=== PATIENT | female | born 1965 | race Caucasian/White ===

== ENCOUNTER → 2019-03-20 | Outpatient (CLI) | payer BC ==
[~2019-03-20] MED LIST: Iopamidol 612 MG/ML 150 ML Bottle IV SCH; Sodium Chloride 0.9% 10 ML Syringe FLUSH ONE; Sodium Chloride 0.9% 80 ML IV ONE
--- NOTE | 2019-03-20 10:38 | CRLCT ---
INDICATION: 54 year-old female. Abdominal pain. Previous cholecystectomy, hernia repair, as well as a Margarita-en-Y gastric bypass. TECHNIQUE: Contrast-enhanced abdominal pelvic CT. 124 cc nonionic Isovue-300 administered. COMPARISON: None. FINDINGS: Postsurgical change from gastric bypass and cholecystectomy. Small esophageal hiatal hernia. There is a small upper anterior ventral abdominal wall hernia image 46 series 2. The overlying anterior abdominal wall muscle does appear to be intact although part of the transverse colon and a knuckle of small bowel to protrude anteriorly. There is no evidence for bowel obstruction or ileus. There is trace free pelvic ascites which is nonspecific. Normal appendix. No diverticular disease. The liver is negative for masses or biliary ductal dilatation. Tiny cyst or hemangioma posterior right hepatic lobe of no clinical significance image 33 series 2. Normal-appearing spleen, pancreas, and right adrenal gland. The left adrenal gland is mildly prominent but low-attenuation likely related to hyperplasia. Normal kidneys without stones, masses, or obstruction. Vascular calcification within a normal caliber abdominal aorta and iliac arteries. Normal inferior vena cava. The uterus, urinary bladder, and both ovaries are unremarkable. Clear included lung bases. The included skeleton is unremarkable. IMPRESSION: 1. No acute abdominopelvic process identified. 2. Small upper abdominal ventral hernia with intact overlying abdominal wall muscle. Small esophageal hiatal hernia. 3. Postsurgical change in the upper abdomen as described. Please note that all CT scans at this facility use dose modulation, iterative reconstruction, and/or weight-based dosing when appropriate to reduce radiation dose to as low as reasonably achievable. Dictated by Piter Velázquez MD @ Mar 20 2019 10:30AM Signed by Dr. Piter Velázquez @ Mar 20 2019 10:36AM
== END ==
LOC: JP.CT 09:08
PROVIDERS: ATTEND Physician Assistant Medical
DX: K91.2 Postsurgical malabsorption, not elsewhere classified (principal); K43.9 Ventral hernia without obstruction or gangrene; K44.9 Diaphragmatic hernia without obstruction or gangrene; Z98.84 Bariatric surgery status
CPT/HCPCS: 74177

== ENCOUNTER 2022-01-25 06:52 | Inpatient (IN) | payer OTHER ==
[~2022-01-25 06:52] MED LIST changes: +Bupivacaine 0.5% 50 ML MDV ONE; +Bupivacaine 0.5%/EPINEPHrine 1:200,000 50 ML MDV ONE; -Iopamidol 612 MG/ML 150 ML Bottle IV SCH; +Lidocaine 1% with EPINEPHrine 1:100,000 50 ML MDV ONE; +Meropenem 500 MG SDV ONE; -Sodium Chloride 0.9% 10 ML Syringe FLUSH ONE; -Sodium Chloride 0.9% 80 ML IV ONE
[2022-01-25] MEDS ORDERED: Dexamethasone 4 MG/ML SDV ONE (07:10)
[2022-01-25] MEDS ORDERED: Rocuronium 50 MG/5 ML Vial ONE (07:10)
[2022-01-25] MEDS ORDERED: Ondansetron 4 MG/2 ML SDV ONE (07:10)
[2022-01-25] MEDS ORDERED: Succinylcholine 200 MG/10 ML MDV ONE (07:10)
[2022-01-25] MEDS ORDERED: Neostigmine Methylsulfate 1 MG/ML 5 ML Syringe ONE (07:10)
[2022-01-25] MEDS ORDERED: Glycopyrrolate 0.2 MG/ML 5 ML MDV ONE (07:10)
[2022-01-25] MEDS ORDERED: Propofol 200 MG/20 ML SDV ONE (07:10)
[2022-01-25] MEDS ORDERED: fentaNYL 250 MCG/5 ML SDV ONE ×2 (07:11→09:00)
[2022-01-25] MEDS ORDERED: Dextrose 5%-Lactated Ringers 1,000 ML IV SCH (07:30)
[2022-01-25] MEDS ORDERED: Celecoxib 200 MG Cap PO ONE (07:30)
[2022-01-25] MEDS ORDERED: Acetaminophen 500 MG Tab PO ONE (07:30)
[2022-01-25] MEDS ORDERED: HYDROmorphone/Normal Saline 6 MG/30 ML PCA Vial IV PRN (07:38)
[2022-01-25] MEDS ORDERED: cefOXitin 2 GM in Sodium Chloride 0.9% 50 ML IV ONE (08:30)
[2022-01-25] MEDS ORDERED: Naloxone 0.4 MG/ML SDV IV PRN (08:30)
[2022-01-25] MEDS ORDERED: Ketamine 500 MG/5 ML MDV IV SCH (08:45)
[2022-01-25] MEDS ORDERED: Ketamine 16 MG in Sodium Chloride 0.9% 19.84 ML IV SCH (08:45)
[2022-01-25] MEDS ORDERED: Lactated Ringers 1,000 ML ONE (10:17)
[2022-01-25] MEDS ORDERED: Ketorolac 30 MG/ML SDV ONE (10:31)
[2022-01-25] MEDS ORDERED: Cyclobenzaprine 10 MG Tab PO PRN (11:56)
[2022-01-25] MEDS ORDERED: Pantoprazole 40 MG Vial IVPUSH SCH (12:00)
[2022-01-25] MEDS ORDERED: Ondansetron 4 MG/2 ML SDV IVPUSH PRN (12:00)
[2022-01-25] MEDS ORDERED: Metoclopramide 10 MG/2 ML SDV IVPUSH PRN (12:00)
[2022-01-25] MEDS ORDERED: Labetalol 20 MG/4 ML Syringe IVPUSH PRN (12:00)
[2022-01-25] MEDS ORDERED: diphenhydrAMINE 50 MG/ML SDV IVPUSH PRN (12:00)
[2022-01-25] MEDS ORDERED: Acetaminophen 500 MG Tab PO PRN (12:00)
[2022-01-25] MEDS ORDERED: hydrOXYzine HCL 100 MG/2 ML SDV IM PRN (12:00)
[2022-01-25] MEDS: Dextrose 5%-Lactated Ringers 1,000 ML IV SCH (12:03)
[2022-01-25] MEDS ORDERED: Scopolamine 1.5 MG Transdermal Patch TOP PRN (12:51)
[2022-01-25] MEDS: Acetaminophen 500 MG Tab PO SCH ×2 (14:55→22:42)
[2022-01-25] MEDS ORDERED: MVI, Adult with Vitamin K 10 ML, Thiamine 200 MG, Zinc/Copper/Manganese/Selenium 1 ML i... IV SCH ×4 (16:00)
[2022-01-25] MEDS: ceFAZolin 2 GM in Premix Bag 1 BAG IV SCH (16:17)
[2022-01-25] MEDS: Heparin Sodium 5,000 Units/ML Vial SUBCUT SCH (20:56)
[2022-01-26] MEDS: ceFAZolin 2 GM in Premix Bag 1 BAG IV SCH ×2 (00:27→07:56)
[2022-01-26] MEDS: Dextrose 5%-Lactated Ringers 1,000 ML IV SCH ×2 (01:59→07:54)
[2022-01-26] MEDS: Acetaminophen 500 MG Tab PO SCH ×2 (06:00→13:45)
[2022-01-26] MEDS ORDERED: Iopamidol 612 MG/ML 50 ML SDV PO ONE (06:59)
[2022-01-26] MEDS: Heparin Sodium 5,000 Units/ML Vial SUBCUT SCH (07:56)
[2022-01-26] MEDS ORDERED: SCOPOLAMINE PATCH CHECK TOP SCH (09:00)
[2022-01-26] MEDS ORDERED: Celecoxib 200 MG Cap PO SCH (09:00)
[2022-01-26] MEDS ORDERED: Dextrose 5%-Lactated Ringers 1,000 ML IV SCH (11:15)
[2022-01-26] MEDS ORDERED: oxyCODONE 5 MG Tab PO PRN (11:20)
[2022-01-26] MEDS ORDERED: Benzocaine/Cetylpyridinium/Menthol Lozenge MUCMEM PRN (11:21)
[2022-01-26] MEDS ORDERED: Pantoprazole 40 MG Delayed-Release Granules 1 Packet PO SCH (16:30)
[2022-01-27] MEDS ORDERED: Cyanocobalamin (Vitamin B12) 1,000 MCG/ML SDV IM ONE (09:00)
== END 2022-01-26 17:30 | disposition home or self-care (01) | DRG 329 ==
LOC: JP.SDS 06:52 → JP.SDSSCHI 06:52 → EDSTATUS 09:15 → JP.MS 11:00
PROVIDERS: ADMIT Surgery; ATTEND Surgery
PROC: 0WUF0JZ Supplement Abdominal Wall with Synthetic Substitute, Open Approach (ICD-10-PCS; principal; 2022-01-25)
PROC: 0DS80ZZ Reposition Small Intestine, Open Approach (ICD-10-PCS; 2022-01-25)
PROC: 0DBW0ZZ Excision of Peritoneum, Open Approach (ICD-10-PCS; 2022-01-25)
PROC: 0DQV0ZZ Repair Mesentery, Open Approach (ICD-10-PCS; 2022-01-25)
PROC: 0WCG0ZZ Extirpation of Matter from Peritoneal Cavity, Open Approach (ICD-10-PCS; 2022-01-25)
PROC: 3E0M05Z Introduction of Adhesion Barrier into Peritoneal Cavity, Open Approach (ICD-10-PCS; 2022-01-25)
DX: K43.0 Incisional hernia with obstruction, without gangrene (principal); K56.2 Volvulus; K91.2 Postsurgical malabsorption, not elsewhere classified; E66.9 Obesity, unspecified; M79.7 Fibromyalgia; K43.9 Ventral hernia without obstruction or gangrene; E53.8 Deficiency of other specified B group vitamins; Z87.891 Personal history of nicotine dependence; Z68.31 Body mass index [BMI] 31.0-31.9, adult
CPT/HCPCS: 74240; 74240-26; 88300; 88305; 88342; A9270-GY; C1713; C1781; C9113; J0171; J0330; J0690; J0694; J1100; J1170; J1644; J1885; J2020; J2185; J2405; J2704; J2710; J2795; J3010; J3411; J3490; J7120; J7121; Q9967

== ENCOUNTER 2023-07-19 18:05 | Inpatient (IN) | payer OTHER ==
[2023-07-19] MEDS ORDERED: Ondansetron 4 MG/2 ML SDV IVPUSH PRN (18:24)
[2023-07-19] MEDS ORDERED: Acetaminophen 500 MG Tab PO PRN (18:26)
[2023-07-19] MEDS ORDERED: Dextrose 5%-Lactated Ringers 1,000 ML IV SCH (18:30)
[2023-07-19] MEDS ORDERED: diphenhydrAMINE 50 MG/ML SDV IVPUSH PRN (18:33)
[2023-07-19] MEDS ORDERED: diphenhydrAMINE 25 MG Cap PO PRN (18:33)
[2023-07-19] MEDS ORDERED: Naloxone 0.4 MG/ML SDV IVPUSH PRN (18:33)
[2023-07-19] MEDS ORDERED: HYDROmorphone/Normal Saline 6 MG/30 ML PCA Vial IV PRN (18:33)
[2023-07-19] MEDS: Pantoprazole 40 MG Vial IVPUSH SCH (19:49)
[2023-07-19] MEDS: Meropenem 500 MG in Sodium Chloride 0.9% 50 ML IV SCH ×2 (19:49→23:29)
[2023-07-19] MEDS ORDERED: ACETAMINOPHEN 650 MG PO SCH (21:00)
[2023-07-20] MEDS: Pantoprazole 40 MG Vial IVPUSH SCH (05:36)
[2023-07-20] MEDS: Meropenem 500 MG in Sodium Chloride 0.9% 50 ML IV SCH ×3 (05:36→17:57)
[2023-07-20 06:05] LABS: HEMATOCRIT 37.6 % (34.3-46.0); HEMOGLOBIN 12.6 g/dL (11.2-15.5); MEAN CORPUSCULAR HEMOGLOBIN 32.9 pg (31.6-35.5); MEAN CORPUSCULAR HGB CONC 33.5 g/dL (31.6-35.5); MEAN CORPUSCULAR VOLUME 98.2 fL (81.4-99.0); PLATELET COUNT,PLT 234 K/uL (130-375); RED BLOOD CELL COUNT 3.83 M/uL (3.77-5.24); WHITE BLOOD CELL COUNT,WBC 10.9 K/uL (3.2-11.0)
[2023-07-20 06:21] LABS: BAND ABSOLUTE MAN 0.33 K/uL; BAND PERCENT MAN 3 % (5-11); LYMPHOCYTES ABSOLUTE MAN 0.33 K/uL (0.8-3.3); LYMPHOCYTES PERCENT MAN 3 % (24-44); MONOCYTES ABSOLUTE MAN 0.55 K/uL (0.20-0.90); MONOCYTES PERCENT MAN 5 % (2-6); SEG NEUTROPHILS PERCENT MAN 89 % (36-66)
[2023-07-20 06:26] LABS: A/G RATIO 0.9 (1.2-2.2); ALANINE AMINOTRANSFERASE,ALT 29 U/L (12-78); ALBUMIN 2.9 g/dL (3.4-5.0); ALKALINE PHOSPHATASE 88 U/L (46-116); ASPARTATE AMNIOTRANSFERASE,AST 11 U/L (15-37); BILIRUBIN TOTAL 0.7 mg/dL (0.2-1.0); BLOOD UREA NITROGEN,BUN 8 mg/dL (7-18); CALCIUM 8.4 mg/dL (8.5-10.1); CARBON DIOXIDE,CO2 31 mmol/L (21-32); CHLORIDE,CL 98 mmol/L (100-108); CREATININE 0.8 mg/dL (0.6-1.0); EST CRCL DRUG DOSING (CG) 70.01 mL/min; ESTIMATED GFR 84 mL/min (>60); GLUCOSE RANDOM 138 mg/dL (74-106); MAGNESIUM 1.7 mg/dL (1.8-2.4); POTASSIUM,K 3.8 mmol/L (3.6-5.2); PROTEIN TOTAL,TP 6.1 g/dL (6.4-8.2); SODIUM,NA 135 mmol/L (140-148)
[2023-07-20 06:31] LABS: ANION GAP 9.8 mmol/L (5.0-14.0)
[2023-07-20] MEDS ORDERED: fentaNYL 250 MCG/5 ML SDV ONE ×2 (07:39→10:15)
[2023-07-20] MEDS ORDERED: Dexamethasone 4 MG/ML SDV ONE (07:40)
[2023-07-20] MEDS ORDERED: Ondansetron 4 MG/2 ML SDV ONE (07:40)
[2023-07-20] MEDS ORDERED: Propofol 200 MG/20 ML SDV ONE ×3 (07:40→08:10)
[2023-07-20] MEDS ORDERED: Rocuronium 50 MG/5 ML Vial ONE ×2 (07:40→10:14)
[2023-07-20] MEDS ORDERED: Glycopyrrolate 0.2 MG/ML 5 ML MDV ONE (07:40)
[2023-07-20] MEDS ORDERED: Neostigmine Methylsulfate 1 MG/ML 5 ML Syringe ONE (07:40)
[2023-07-20] MEDS ORDERED: Succinylcholine 200 MG/10 ML MDV ONE (07:40)
[2023-07-20] MEDS ORDERED: Ketamine 500 MG/5 ML MDV IV SCH ×3 (08:00→10:00)
[2023-07-20] MEDS ORDERED: Bupivacaine 0.5% 50 ML MDV ONE (08:27)
[2023-07-20] MEDS ORDERED: Meropenem 500 MG SDV ONE ×2 (08:27→10:58)
[2023-07-20] MEDS ORDERED: Lidocaine 1% with EPINEPHrine 1:100,000 50 ML MDV ONE (08:27)
[2023-07-20] MEDS ORDERED: Ketamine 17 MG in Sodium Chloride 0.9% 19.83 ML IV SCH (10:00)
[2023-07-20] MEDS ORDERED: Linezolid 600 MG/300 ML Premix Bag IRR ONE ×2 (10:08→11:10)
[2023-07-20] MEDS ORDERED: Labetalol 20 MG/4 ML Syringe ONE (10:35)
[2023-07-20] MEDS ORDERED: Sodium Chloride 0.9% 10 ML ONE (10:58)
[2023-07-20] MEDS ORDERED: HYDROmorphone/Normal Saline 6 MG/30 ML PCA Vial IV PRN ×2 (13:03→20:15)
[2023-07-20] MEDS ORDERED: Cyclobenzaprine 10 MG Tab PO PRN (13:04)
[2023-07-20] MEDS ORDERED: hydrOXYzine HCL 100 MG/2 ML SDV IM PRN (14:00)
[2023-07-20] MEDS ORDERED: Labetalol 20 MG/4 ML Syringe IVPUSH PRN (14:00)
[2023-07-20] MEDS ORDERED: diphenhydrAMINE 50 MG/ML SDV IVPUSH PRN (14:00)
[2023-07-20] MEDS ORDERED: Naloxone 0.4 MG/ML SDV IV PRN (14:00)
[2023-07-20] MEDS ORDERED: Acetaminophen 500 MG Tab PO PRN (14:00)
[2023-07-20] MEDS ORDERED: Metoclopramide 10 MG/2 ML SDV IVPUSH PRN (14:00)
[2023-07-20] MEDS: MVI, Adult with Vitamin K 10 ML, Thiamine 200 MG, Zinc/Copper/Manganese/Selenium 1 ML i... IV SCH ×4 (15:19)
[2023-07-20] MEDS: Linezolid 600 MG in Premix Bag 1 BAG IV SCH (15:19)
[2023-07-20] MEDS: Acetaminophen 500 MG Tab PO SCH ×2 (15:29→22:16)
[2023-07-20] MEDS: Dextrose 5%-Lactated Ringers 1,000 ML IV SCH (22:30)
[2023-07-21] MEDS: Meropenem 500 MG in Sodium Chloride 0.9% 50 ML IV SCH ×4 (00:17→18:07)
[2023-07-21] MEDS: Linezolid 600 MG in Premix Bag 1 BAG IV SCH ×2 (03:02→14:40)
[2023-07-21] MEDS ORDERED: Iopamidol 612 MG/ML 50 ML SDV PO ONE (03:03)
[2023-07-21 04:39] LABS: BASOPHILS PERCENT AUTO 0.1 % (0.1-1.3); HEMATOCRIT 33.9 % (34.3-46.0); HEMOGLOBIN 11.3 g/dL (11.2-15.5); IMMATURE GRAN ABSOLUTE AUTO 0.03 K/uL (0.00-0.23); IMMATURE GRAN PERCENT AUTO 0.3 % (0.0-0.7); LYMPHOCYTES ABSOLUTE AUTO 0.71 K/uL (0.8-3.3); MEAN CORPUSCULAR HEMOGLOBIN 32.9 pg (31.6-35.5); MEAN CORPUSCULAR HGB CONC 33.3 g/dL (31.6-35.5); MEAN CORPUSCULAR VOLUME 98.8 fL (81.4-99.0); MONOCYTES ABSOLUTE AUTO 0.41 K/uL (0.20-0.90); MONOCYTES PERCENT AUTO 3.5 % (3.3-12.6); NEUTROPHILS ABSOLUTE AUTO 10.71 K/uL (1.0-7.6); NEUTROPHILS PERCENT AUTO 90.1 % (40.0-78.1); RED BLOOD CELL COUNT 3.43 M/uL (3.77-5.24); WHITE BLOOD CELL COUNT,WBC 11.9 K/uL (3.2-11.0)
[2023-07-21 04:49] LABS: BASOPHILS ABSOLUTE AUTO 0.01 K/uL (0.00-0.10)
[2023-07-21 04:51] LABS: PLATELET COUNT,PLT 240 K/uL (130-375)
[2023-07-21 04:58] LABS: A/G RATIO 0.7 (1.2-2.2); ALANINE AMINOTRANSFERASE,ALT 82 U/L (12-78); ALBUMIN 2.3 g/dL (3.4-5.0); ALKALINE PHOSPHATASE 98 U/L (46-116); ASPARTATE AMNIOTRANSFERASE,AST 48 U/L (15-37); BILIRUBIN TOTAL 0.4 mg/dL (0.2-1.0); BLOOD UREA NITROGEN,BUN 6 mg/dL (7-18); CALCIUM 8.3 mg/dL (8.5-10.1); CARBON DIOXIDE,CO2 27 mmol/L (21-32); CHLORIDE,CL 101 mmol/L (100-108); CREATININE 0.7 mg/dL (0.6-1.0); EST CRCL DRUG DOSING (CG) 80.01 mL/min; ESTIMATED GFR 99 mL/min (>60); GLUCOSE RANDOM 146 mg/dL (74-106); MAGNESIUM 1.8 mg/dL (1.8-2.4); PHOSPHORUS 2.5 mg/dL (2.5-4.9); POTASSIUM,K 3.7 mmol/L (3.6-5.2); PROTEIN TOTAL,TP 5.6 g/dL (6.4-8.2); SODIUM,NA 137 mmol/L (140-148)
[2023-07-21 05:01] LABS: ANION GAP 12.7 mmol/L (5.0-14.0)
[2023-07-21] MEDS: Pantoprazole 40 MG Vial IVPUSH SCH (05:35)
[2023-07-21] MEDS: Acetaminophen 500 MG Tab PO SCH ×3 (05:35→21:21)
[2023-07-21] MEDS: Dextrose 5%-Lactated Ringers 1,000 ML IV SCH (05:36)
[2023-07-21] MEDS ORDERED: Dextrose 5%-Lactated Ringers 1,000 ML IV SCH (08:00)
[2023-07-21] MEDS: Cyclobenzaprine 10 MG Tab PO SCH ×2 (09:00→17:46)
[2023-07-21] MEDS: Celecoxib 200 MG Cap PO SCH ×2 (09:00→21:21)
[2023-07-21] MEDS: Potassium Phos in 0.9 % NaCl 15 MMOL in Premix Bag 1 BAG IV SCH ×6 (09:01→15:54)
[2023-07-21] MEDS: MVI, Adult with Vitamin K 10 ML, Thiamine 200 MG, Zinc/Copper/Manganese/Selenium 1 ML i... IV SCH ×4 (18:07)
[2023-07-22] MEDS: Meropenem 500 MG in Sodium Chloride 0.9% 50 ML IV SCH ×4 (01:00→17:03)
[2023-07-22] MEDS: Cyclobenzaprine 10 MG Tab PO SCH ×3 (01:02→17:03)
[2023-07-22] MEDS: Linezolid 600 MG in Premix Bag 1 BAG IV SCH ×2 (02:50→14:07)
[2023-07-22 04:09] LABS: HEMATOCRIT 29.2 % (34.3-46.0); HEMOGLOBIN 9.7 g/dL (11.2-15.5); MEAN CORPUSCULAR HEMOGLOBIN 32.4 pg (31.6-35.5); MEAN CORPUSCULAR HGB CONC 33.2 g/dL (31.6-35.5); MEAN CORPUSCULAR VOLUME 97.7 fL (81.4-99.0); RED BLOOD CELL COUNT 2.99 M/uL (3.77-5.24)
[2023-07-22 04:48] LABS: A/G RATIO 0.6 (1.2-2.2); ALANINE AMINOTRANSFERASE,ALT 52 U/L (12-78); ALKALINE PHOSPHATASE 85 U/L (46-116); ASPARTATE AMNIOTRANSFERASE,AST 23 U/L (15-37); BILIRUBIN TOTAL 0.4 mg/dL (0.2-1.0); BLOOD UREA NITROGEN,BUN 3 mg/dL (7-18); CALCIUM 7.7 mg/dL (8.5-10.1); CARBON DIOXIDE,CO2 30 mmol/L (21-32); CHLORIDE,CL 103 mmol/L (100-108); CREATININE 0.7 mg/dL (0.6-1.0); EST CRCL DRUG DOSING (CG) 80.44 mL/min; ESTIMATED GFR 99 mL/min (>60); GLUCOSE RANDOM 128 mg/dL (74-106); MAGNESIUM 1.7 mg/dL (1.8-2.4); PHOSPHORUS 3.4 mg/dL (2.5-4.9); POTASSIUM,K 3.6 mmol/L (3.6-5.2); PROTEIN TOTAL,TP 5.2 g/dL (6.4-8.2); SODIUM,NA 139 mmol/L (140-148)
[2023-07-22 05:09] LABS: ANION GAP 9.6 mmol/L (5.0-14.0)
[2023-07-22] MEDS: Acetaminophen 500 MG Tab PO SCH ×3 (05:13→21:21)
[2023-07-22] MEDS: Pantoprazole 40 MG Vial IVPUSH SCH (05:55)
[2023-07-22] MEDS ORDERED: Meropenem 500 MG SDV ONE (06:52)
[2023-07-22] MEDS ORDERED: Lidocaine 1% with EPINEPHrine 1:100,000 50 ML MDV ONE (06:52)
[2023-07-22] MEDS ORDERED: Bupivacaine 0.5% 50 ML MDV ONE (06:52)
[2023-07-22] MEDS ORDERED: Propofol 200 MG/20 ML SDV ONE ×2 (07:28→07:49)
[2023-07-22] MEDS ORDERED: fentaNYL 100 MCG/2 ML SDV ONE ×2 (07:28→07:56)
[2023-07-22] MEDS ORDERED: Lactated Ringers 1,000 ML ONE (07:36)
[2023-07-22] MEDS ORDERED: Albumin Human 25 GM in Premix Bag 1 BAG IV SCH ×2 (09:00→13:00)
[2023-07-22] MEDS: Bisacodyl 5 MG Tab PO SCH ×2 (10:36→21:21)
[2023-07-22] MEDS: Cyanocobalamin (Vitamin B12) 1,000 MCG/ML SDV IM ONE ×2 (10:37→10:40)
[2023-07-22] MEDS: Celecoxib 200 MG Cap PO SCH ×2 (10:37→21:21)
[2023-07-22] MEDS: Docusate Sodium 100 MG Cap PO SCH ×2 (10:37→21:21)
[2023-07-23] MEDS: Meropenem 500 MG in Sodium Chloride 0.9% 50 ML IV SCH ×2 (00:12→05:59)
[2023-07-23] MEDS: Cyclobenzaprine 10 MG Tab PO SCH ×2 (00:13→09:15)
[2023-07-23] MEDS: Linezolid 600 MG in Premix Bag 1 BAG IV SCH (02:46)
[2023-07-23] MEDS: Acetaminophen 500 MG Tab PO SCH (05:53)
[2023-07-23] MEDS: Pantoprazole 40 MG Vial IVPUSH SCH (05:54)
[2023-07-23] MEDS ORDERED: HYDROmorphone 2 MG Tab PO PRN (08:31)
[2023-07-23] MEDS: Celecoxib 200 MG Cap PO SCH (09:15)
[2023-07-23] MEDS: Docusate Sodium 100 MG Cap PO SCH (09:16)
[2023-07-23] MEDS: Bisacodyl 5 MG Tab PO SCH (09:16)
== END 2023-07-23 15:05 | disposition home or self-care (01) | DRG 326 ==
LOC: JP.MS 18:05
PROVIDERS: ADMIT Surgery; ATTEND Surgery
PROC: 0DT60ZZ Resection of Stomach, Open Approach (ICD-10-PCS; principal; 2023-07-20)
PROC: 0WQF0ZZ Repair Abdominal Wall, Open Approach (ICD-10-PCS; 2023-07-20)
PROC: 0DQ90ZZ Repair Duodenum, Open Approach (ICD-10-PCS; 2023-07-20)
PROC: 0D990ZZ Drainage of Duodenum, Open Approach (ICD-10-PCS; 2023-07-20)
PROC: 0DBW0ZZ Excision of Peritoneum, Open Approach (ICD-10-PCS; 2023-07-20)
PROC: 3E0M05Z Introduction of Adhesion Barrier into Peritoneal Cavity, Open Approach (ICD-10-PCS; 2023-07-20)
PROC: 0WQF0ZZ Repair Abdominal Wall, Open Approach (ICD-10-PCS; 2023-07-22)
DX: K26.5 Chronic or unspecified duodenal ulcer with perforation (principal); K65.1 Peritoneal abscess; K43.0 Incisional hernia with obstruction, without gangrene; E78.5 Hyperlipidemia, unspecified; E53.8 Deficiency of other specified B group vitamins; E55.9 Vitamin D deficiency, unspecified; E60 Dietary zinc deficiency; M79.7 Fibromyalgia; E50.9 Vitamin A deficiency, unspecified; D50.9 Iron deficiency anemia, unspecified; K86.89 Other specified diseases of pancreas; K66.8 Other specified disorders of peritoneum; E66.9 Obesity, unspecified; K66.0 Peritoneal adhesions (postprocedural) (postinfection); Z90.49 Acquired absence of other specified parts of digestive tract; Z98.890 Other specified postprocedural states; Z98.84 Bariatric surgery status; Z68.32 Body mass index [BMI] 32.0-32.9, adult
CPT/HCPCS: 36415; 74240; 74240-26; 80053; 83735; 84100; 85025; 85027; 87070; 87075; 87077; 87186; 87205; A9270-GY; C9113; J0131; J0171; J0330; J1100; J1170; J2020; J2185; J2405; J2704; J2710; J2795; J3010; J3411; J3420; J3490; J7120; J7121; P9047; Q9967; U0002

== ENCOUNTER 2025-08-18 08:10 | Day surgery (SDC) | payer OTHER ==
[2025-08-18] MEDS ORDERED: fentaNYL 250 MCG/5 ML SDV ONE (08:18)
[2025-08-18] MEDS ORDERED: Succinylcholine 200 MG/10 ML MDV ONE (08:19)
[2025-08-18] MEDS ORDERED: Ondansetron 4 MG/2 ML SDV ONE (08:19)
[2025-08-18] MEDS ORDERED: Dexamethasone 4 MG/ML SDV ONE (08:19)
[2025-08-18] MEDS ORDERED: Propofol 200 MG/20 ML SDV ONE (08:19)
[2025-08-18] MEDS ORDERED: Glycopyrrolate 0.2 MG/ML 5 ML MDV ONE (08:19)
[2025-08-18 08:43] LABS: PLATELET COUNT,PLT 241.0 K/uL (130-375); RED BLOOD CELL COUNT 4.21 M/uL (3.77-5.24); WHITE BLOOD CELL COUNT,WBC 6.0 K/uL (3.2-11.0)
[2025-08-18 09:04] LABS: A/G RATIO 1.1 (1.2-2.2); ALANINE AMINOTRANSFERASE,ALT 43 U/L (12-78); ASPARTATE AMNIOTRANSFERASE,AST 29 U/L (15-37); BILIRUBIN TOTAL 0.7 mg/dL (0.2-1.0); BLOOD UREA NITROGEN,BUN 9 mg/dL (7-18); CARBON DIOXIDE,CO2 29 mmol/L (21-32); CHLORIDE,CL 102 mmol/L (100-108); CREATININE 0.6 mg/dL (0.6-1.0); EST CRCL DRUG DOSING (CG) 91.01 mL/min; ESTIMATED GFR 101 mL/min (>60); GLUCOSE RANDOM 96 mg/dL (74-106); POTASSIUM,K 4.1 mmol/L (3.6-5.2); PROTEIN TOTAL,TP 7.0 g/dL (6.4-8.2); SODIUM,NA 138 mmol/L (140-148)
[2025-08-18] MEDS: Lactated Ringers 1,000 ML IV SCH (09:20)
[2025-08-18] MEDS: metroNIDAZOLE/Normal Saline 500 MG in Premix Bag 1 BAG IV ONE (09:54)
[2025-08-18] MEDS ORDERED: fentaNYL 100 MCG/2 ML SDV ONE (11:54)
[2025-08-18] MEDS ORDERED: Ketorolac 30 MG/ML SDV ONE (11:58)
[2025-08-18] MEDS: Acetaminophen/HYDROcodone 325-5 MG Tab PO PRN (13:49)
== END 2025-08-18 15:18 | disposition home or self-care (01) ==
LOC: JP.SDS 08:10
PROVIDERS: ATTEND Surgery
DX: K43.6 Other and unspecified ventral hernia with obstruction, without gangrene (principal); E78.5 Hyperlipidemia, unspecified; E16.1 Other hypoglycemia; E66.01 Morbid (severe) obesity due to excess calories; Z68.41 Body mass index [BMI] 40.0-44.9, adult; Z79.899 Other long term (current) drug therapy
CPT/HCPCS: 00750; 36415; 49594; 80053; 85027; A9270; C1713; C1781; J0169; J0330; J0665; J0690; J1100; J1596; J1836; J1885; J2405; J2704; J2710; J2795; J3010; J7120; J3490